=== PATIENT | male | born 1960 | race Caucasian/White ===

== ENCOUNTER 2020-12-30 10:01 | Day surgery (SDC) | payer BC ==
[~2020-12-30 10:01] MED LIST: Acetaminophen 325 MG Tab PO SCH; Lactated Ringers 1,000 ML IV SCH; Lidocaine 1%/Sod Bicarbonate in NS 8.4% 1 ML Syringe IDERM PRN; Morphine 8 MG, EPINEPHrine 0.3 MG, Cefuroxime 750 MG, Sodium Chloride 0.9% 7.9 ML PRN; Pregabalin 25 MG Cap PO SCH; Sodium Chloride 0.9% 10 ML Syringe FLUSH PRN; oxyCODONE ER 10 MG TAB.ER PO SCH
--- NOTE | 2020-12-30 11:09 | PCM.PREANE ---
Preanesthetic Assessment - Anesthesia/Transfusion/Family Hx Anesthesia History: Prior Anesthesia Without Reaction Family History of Anesthesia Reaction: No Transfusion History: No Prior Transfusion(s) - Review of Systems General: Other (cold 2 weeks ago, covid negative) Pulmonary: No Symptoms Cardiovascular: Other (s/p CA with stents 1 year ago, cardiology cleared for surgery, denies any CP, greater than 4 mets) Gastrointestinal: Other (GERD, takes meds and feels its controlled) - Physical Assessment NPO Status Date: 12/29/20 NPO Status Time: 21:30 Weight: 101.2 kg ASA Class: 3 Mental Status: Alert & Oriented x3 Airway Class: Mallampati = 2 Dentition: Reports: Normal Dentition Thyro-Mental Finger Breadths: 3 Mouth Opening Finger Breadths: 3 ROM/Head Extension: Full Lungs: Clear to Auscultation, Normal Respiratory Effort Cardiovascular: Regular Rate, Regular Rhythm - Lab Values: Laboratory Last Values PT 10.3 SECONDS (9.7-12.0) 12/30/20 10:15 INR 0.93 12/30/20 10:15 APTT 25.3 SECONDS (21.7-31.4) 12/30/20 10:15 - Allergies Allergies/Adverse Reactions: Allergies Allergy/AdvReac Type Severity Reaction Status Date / Time bupropion [From Wellbutrin] Allergy Cannot Verified 12/28/20 11:36 Remember Iodinated Contrast Media Allergy Cannot Verified 12/28/20 11:36 Remember morphine Allergy Cannot Verified 12/28/20 11:36 Remember naproxen [From Naprosyn] Allergy Cannot Verified 12/28/20 11:36 Remember metoprolol AdvReac Cannot Verified 12/28/20 11:36 Remember - Blood Blood Available: No Product(s) Available: None - Anesthesia Plan Beta Janet: Metoprolol Med Last Dose Date: 12/30/20 Med Last Dose Time: 07:20 PreAnesthesia Questionnaire HEENT History: Reports: Impaired Vision Cardiovascular History: Reports: CAD, High Cholesterol, Hypertension, CA, Stents Respiratory History: Reports: None Gastrointestinal History: Reports: GERD Genitourinary History: Reports: None TITLE COORDINATOR History: Reports: None Musculoskeletal History: Reports: Arthritis Neurological History: Reports: None Psychiatric History: Reports: None Endocrine/Metabolic History: Reports: None Other Hematologic History: bone marrow biopsy Immunologic History: Reports: None Oncologic (Cancer) History: Reports: None Dermatologic History: Reports: None - Infectious Disease History Infectious Disease History: Reports: None - Past Surgical History Head Surgeries/Procedures: Reports: None HEENT Surgical History: Reports: None Cardiovascular Surgical History: Reports: Other (See Below) Other Cardiovascular Surgeries/Procedures: stents x 6 Respiratory Surgical History: Reports: None GI Surgical History: Reports: Colonoscopy Female Surgical History: Reports: None Male Surgical History: Reports: None Endocrine Surgical History: Reports: None Neurological Surgical History: Reports: None Musculoskeletal Surgical History: Reports: Other (See Below) Other Musculoskeletal Surgeries/Procedures:: broken leg as child Oncologic Surgical History: Reports: None Dermatological Surgical History: Reports: None - SUBSTANCE USE Tobacco Use Status *Q: Former Tobacco User Recreational Drug Use History: No - HOME MEDS Home Medications: Home Meds Ascorbic Acid [Vitamin C] 500 mg PO BID 12/28/20 [History] Cholecalciferol (Vitamin D3) [Vitamin D3] 5,000 unit PO DAILY 12/28/20 [History] Clopidogrel Bisulfate [Plavix] 75 mg PO DAILY 12/28/20 [History] Fish Oil/[place]-3 Fatty Acids [Fish Oil 1,000 MG] 1 gm PO BID 12/28/20 [History] Flaxseed Oil 1,000 mg PO BID 12/28/20 [History] Gabapentin [Gralise] 300 mg PO BEDTIME 12/28/20 [History] Metoprolol Succinate [[place]sp[place] Sprinkle] 25 mg PO DAILY 12/28/20 [History] Nitroglycerin [Nitrostat] 0.4 mg PO ASDIRECTED PRN 12/28/20 [History] Omeprazole Magnesium [Prilosec Otc] 20 mg PO DAILY 12/28/20 [History] Rosuvastatin [Crestor] 20 mg PO DAILY 12/28/20 [History] Sildenafil Citrate [Viagra] 50 mg PO ASDIRECTED PRN 12/28/20 [History] Vitamin E 400 unit PO DAILY 12/28/20 [History] Zolpidem Tartrate [Ambien] 5 mg PO BEDTIME PRN 12/28/20 [History] hydroCHLOROthiazide [Hydrochlorothiazide] 12.5 mg PO DAILY 12/28/20 [History] lisinopriL [Lisinopril] 2.5 mg PO DAILY 12/28/20 [History] Aspirin [Aspirin EC] 325 mg PO DAILY #40 tablet. 12/30/20 [Rx] Cyclobenzaprine [Flexeril] 10 mg PO BID PRN #20 tab 12/30/20 [Rx] oxyCODONE 5 - 10 mg PO Q4H PRN #40 tab 12/30/20 [Rx] - CURRENT (IN HOUSE) MEDS Current Meds: Current Medications Acetaminophen (Acetaminophen 325 Mg Tab) 975 mg PO ONETIME KYA Stop: 12/30/20 13:00 Morphine Sulfate 8 mg/Epinephrine HCl 0.3 mg/Cefuroxime Sodium 750 mg/Sodium Chloride 7.9 ml 0 mg .XX ASDIRECTED PRN PRN Reason: Pain Stop: 12/30/20 13:00 Lactated Ringer's (Ringers, Lactated) 1,000 mls @ 125 mls/hr IV ASDIRECTED KYA Stop: 12/30/20 23:00 Lidocaine/Sodium Bicarbonate (Lidocaine 1%/Sod Bicarbonate In Ns 8.4% 1 Ml Syringe) 0.25 ml IDERM ONETIME PRN PRN Reason: Prior to IV Start Stop: 12/30/20 18:00 Oxycodone HCl (Oxycodone Er 10 Mg Tab.Er) 10 mg PO ONETIME KYA Stop: 12/30/20 13:00 Pregabalin (Pregabalin 25 Mg Cap) 50 mg PO ONETIME KYA Stop: 12/30/20 13:00 Sodium Chloride (Sodium Chloride 0.9% 10 Ml Syringe) 10 ml FLUSH ASDIRECTED PRN PRN Reason: Keep Vein Open Stop: 12/30/20 18:00
[2020-12-30] MEDS ORDERED: EPINEPHrine 1 MG/ML SDV ONE ×2 (12:04→12:27)
[2020-12-30] MEDS ORDERED: Ropivacaine 0.5% 5 MG/ML 30 ML SDV ONE ×2 (12:04→12:27)
[2020-12-30] MEDS ORDERED: oxyCODONE 5 MG Tab PO PRN (12:09)
[2020-12-30] MEDS ORDERED: Cyclobenzaprine 10 MG Tab PO PRN (12:09)
[2020-12-30] MEDS ORDERED: Propofol 200 MG/20 ML SDV ONE (12:15)
[2020-12-30] MEDS ORDERED: fentaNYL 100 MCG/2 ML SDV ONE (12:15)
[2020-12-30] MEDS ORDERED: Midazolam 1 MG/ML 2 ML SDV ONE (12:15)
[2020-12-30] MEDS ORDERED: ceFAZolin 1 GM Vial ONE (12:15)
[2020-12-30] MEDS ORDERED: Vancomycin 1 GM SDV ONE (12:28)
[2020-12-30] MEDS ORDERED: Lactated Ringers 1,000 ML ONE ×2 (12:46→13:44)
[2020-12-30] MEDS ORDERED: ePHEDrine 50 MG/ML SDV ONE (12:53)
[2020-12-30] MEDS ORDERED: Ondansetron 4 MG/2 ML SDV IVPUSH PRN (12:59)
[2020-12-30] MEDS ORDERED: fentaNYL 100 MCG/2 ML SDV IVPUSH PRN (12:59)
[2020-12-30] MEDS ORDERED: HYDROmorphone 0.5 MG/0.5 ML Syringe IVPUSH PRN (12:59)
--- NOTE | 2020-12-30 14:20 | PCM.POSTAN ---
POST ANESTHESIA ASSESSMENT - MENTAL STATUS Mental Status: Alert, Oriented - VITAL SIGNS Vital Signs: Last Vital Signs Temp 97.3 F 12/30/20 14:15 Pulse 72 12/30/20 14:15 Resp 14 12/30/20 14:15 BP 107/67 12/30/20 14:15 Pulse Ox 95 12/30/20 14:15 - RESPIRATORY Respiratory Status: Respiratory Rate WNL, Airway Patent, O2 Saturation Stable, Supplemental Oxygen - CARDIOVASCULAR CV Status: Pulse Rate WNL, Blood Pressure Stable - GASTROINTESTINAL GI Status: No Symptoms - PAIN Pain Score: 0 - POST OP HYDRATION Hydration Status: Adequate & Stable
--- NOTE | 2020-12-30 14:43 | PCM.SN.2 ---
- Free Text/Narrative Note: Right selective femoral nerve block at the adductor canal for post-procedure pain control under US guidance requested by Dr. Melo. Time Out: 1422 Start: 1422 End: 1430 Chart reviewed. Consent signed. Questions answered. Appropriate monitors applied. Time out performed. Right mid-shaft femur identified with ultrasound, scanning medially of femur, the femoral artery in the adductor canal visualized, and the femoral nerve located laterally to the artery. The skin was prepped lateral to the ultrasound probe with chlorahexadine times two. The 21ga 4 insulated block needle was inserted under direct ultrasound guidance into the adductor canal. 20mL of 0.5% ropivacaine with 1:200,000 epinephrine was injected circumferentially around the nerve with intermittent negative aspiration noted. Patient tolerated the procedure well. Sterile technique noted along with sterile gloves, mask, and sterile probe cover. See picture on progress note and vital signs on nurses notes. Block completed in PACU. Ginger Herrera CRNA Time Documentation
--- NOTE | 2020-12-30 14:43 | PCM48HPAN ---
Post Anesthesia Note - EVALUATION WITHIN 48HRS OF ANESTHETIC Vital Signs in Normal Range: Yes Patient Participated in Evaluation: Yes Respiratory Function Stable: Yes Airway Patent: Yes Cardiovascular Function Stable: Yes Hydration Status Stable: Yes Pain Control Satisfactory: Yes Nausea and Vomiting Control Satisfactory: Yes Mental Status Recovered: Yes Vital Signs: Last Vital Signs Temp 36.4 C 12/30/20 14:30 Pulse 71 12/30/20 14:30 Resp 13 12/30/20 14:30 BP 131/71 12/30/20 14:30 Pulse Ox 96 12/30/20 14:30
--- NOTE | 2020-12-30 15:19 | CR ---
Right knee: AP and crosstable lateral views of the right knee were obtained. Comparison: Prior CT right knee study of 12/18/20. Knee prosthesis is noted. Patellar prosthesis is also seen. Soft tissue air is noted. Underlying bony structures show no other acute abnormality. Mild vascular calcification is seen. Impression: 1. Satisfactory postoperative radiographic appearance of recently placed right knee prostheses. Diagnostic code #2
--- NOTE | 2021-01-09 07:41 | PCM.OPNOTE ---
- General Post-Op/Procedure Note Date of Surgery/Procedure: 12/30/20 Operative Procedure(s): right total knee arthroplasty with [employer] robot[employer] Pre Op Diagnosis: right knee osteoarthrosis Post-Op Diagnosis: Same Anesthesia Technique: Local, MAC, Spinal Primary Surgeon: Rudy Melo Anesthesia Provider: Taylor Ferrara Corner Trimmer Operator: Marsha Medeiros Corner Trimmer Operator: Jacqui Paiz in mLs: 100 Complications: None Condition: Good Free Text/Narrative:: 6 femur 5 tibia 32x10 9mm
--- NOTE | 2021-01-13 08:49 | OR ---
DATE OF OPERATION: 12/30/2020 SURGEON: Rudy Melo MD OPERATION PERFORMED: Right total knee arthroplasty with [employer] robot[employer]. PREOPERATIVE DIAGNOSIS: Right knee osteoarthrosis. POSTOPERATIVE DIAGNOSIS: Right knee osteoarthrosis. ANESTHESIA: Local MAC with spinal. ANESTHESIA PROVIDER: Taylor Ferrara. ASSISTANTS: Marsha Medeiros PA-C and Jacqui Paiz RN. ESTIMATED BLOOD LOSS: 100 mL. COMPLICATIONS: None. CONDITION: Stable. IMPLANT: 1. Big Bar size 6 press-fit CR femur. 2. Jason size 5 press-fit tibial baseplate. 3. Jason size 32 x 10 mm press-fit patella. 4. Jason size 5, 9 mm CS polyethylene insert. DESCRIPTION OF PROCEDURE: The patient was identified in the preop holding area. Proper site was marked and identified by the surgeon. The patient was taken back to the operating theater where after adequate anesthesia, the patient's right lower extremity had a nonsterile tourniquet applied and it was sterilely prepped and draped in the usual sterile fashion. OR time-out was performed. The patient received 2 g IV Ancef . Leg english was then applied to the right lower extremity. At this time, the right lower extremity was exsanguinated. Tourniquet was insufflated to 250 mmHg . Standard anterior incision was made. Medial parapatellar arthrotomy was created. Deep fibers of the MCL were raised as well as anterior fat pad was resected. Attention was turned to the patella. Patella measured 25 mm; it was resected to 14 mm for 32 x 10 mm press-fit patella. Drill holes were then drilled. Attention was then turned to the femur. Two 4.0 pins were placed intra-incisionally for the [employer] robotic array and then 2 more were placed on the tibia 3 fingerbreadths below the tibial tubercle. The Jason Akira robotic arrays were placed on both the femur and the tibia then at this time as well as checkpoints on the femur and tibia. Hip center rotation was then obtained. The medial and lateral malleoli were marked. At this time, 40 points were obtained off the femur and the tibia for the Jason Akira robotic plan. The patient's knee was brought to full extension. Varus and valgus stresses were applied and then into 90 degrees of flexion with a curved osteotome. Varus and valgus stresses were applied. At this time, Jason Mako robotic plan was done to 19 mm gaps in both flexion and extension. Jason Akira robotic arm was then brought in. A straight saw blade was then used for the tibial cut, the anterior femoral cut, the anterior chamfer cut, and the posterior femoral cut. All bony fragments were removed. Saw blade was then switched out and the distal femoral cut as well as the posterior chamfer cut was completed. At this time, medial and lateral menisci were resected as well as any posterior osteophytes. A size 5 mm press-fit tibial baseplate was then placed, size 6 mm press-fit CR femur was placed, and a size 5, 9 mm CS polyethylene insert was placed. The patient's knee was brought to full extension and flexion. Varus and valgus stresses were applied, was found to be stable with no instability. No signs of liftoff or loosening were noted. The pins were removed from the femur and the tibia as well as the arrays and the checkpoints. The Jason size 5 mm press-fit tibial baseplate having been previously stamped and drilled, was then impacted in place on the tibia. The Big Bar size 6 mm press-fit CR femur was impacted into place. The patient had a Big Bar size 5, 9 mm CS polyethylene insert placed. The patient's knee was brought to full extension. A Jason size 32 x 10 mm press-fit patella was then press fit into place. 1 L of pulse lavage irrigation with Ancef was irrigated through the knee along with 400 mL of Irrisept irrigation. Periarticular injection was completed. Topical tranexamic acid and vancomycin powder were applied. A #2 barbed suture was used for closure of the medial parapatellar arthrotomy in flexion. 2-0 Vicryl and Stratafix were used for subcutaneous closure. Prineo was used for cutaneous closure. The patient had a sterile soft dressing applied. The tibial holes were closed with nylon, and this was also covered with a sterile soft dressing. The patient had an FLACO wrap applied and was sent to PACU in stable condition. The patient tolerated the procedure well. MMODAL /[id number] [facility]ITALDexter
== END 2020-12-30 16:51 | disposition home or self-care (01) ==
LOC: JD.SDS 10:01
PROVIDERS: ATTEND Orthopaedic Surgery
DX: M17.11 Unilateral primary osteoarthritis, right knee (principal); I25.10 Atherosclerotic heart disease of native coronary artery without angina pectoris; I10 Essential (primary) hypertension; K21.9 Gastro-esophageal reflux disease without esophagitis; E78.5 Hyperlipidemia, unspecified; Z98.890 Other specified postprocedural states; Z79.899 Other long term (current) drug therapy; Z88.8 Allergy status to other drugs, medicaments and biological substances; Z88.5 Allergy status to narcotic agent; Z79.82 Long term (current) use of aspirin; Z91.041 Radiographic dye allergy status; Z87.891 Personal history of nicotine dependence; I25.2 Old myocardial infarction
CPT/HCPCS: 27447; 36415; 73560; 85610; 85730; 97110; 97116; 97161; A9270; C1713; C1776; J0171; J0690; J0697; J2250; J2270; J2704; J2795; J3010; J3370; J7120; 01402; 64450; 76942